=== PATIENT | male | born 1950 ===

== ENCOUNTER 2021-03-24 14:59 | Observation (INO) ==
[2021-03-24] MEDS ORDERED: Lactated Ringers 1000 ml BAG 1,000 ML IV ONE (15:34)
[2021-03-24] MEDS ORDERED: Metoprolol Tartrate 5 mg VIAL 5 ml VIAL (1 mg/ml) IV ONE (15:51)
[2021-03-24 15:54] LABS: ABS Basophils 0.1 10^3/ul (0-0.2); ABS Eosinophils 0.3 10^3/ul (0-0.6); ABS Monocytes 0.6 10^3/ul (0-0.8); ABS Neutrophils 6.3 10^3/ul (1.5-7.7); Eosinophil % 3.4 %; Hematocrit 40 % (42-52); Hemoglobin 13.8 g/dL (14.0-18.0); Lymphocyte % 21.4 %; Mean Corpuscular HGB Conc 35 g/dL (31-36); Mean Corpuscular Hemoglobin 31 pg (27-31); Mean Corpuscular Volume 89 fL (80-94); Mean Platelet Volume 7.3 fL (7.4-10.4); Platelet Count 305 10^3/uL (150-450); Red Blood Count 4.49 10^6 /uL (4.18-5.48); Red Cell Distribution Width 13 % (10-15); White Blood Count 9.3 10^3/uL (3.5-10.8)
[2021-03-24 16:28] LABS: Potassium 3.9 mmol/L (3.5-5.0)
[2021-03-24 16:29] LABS: Albumin 3.7 g/dL (3.2-5.2); Albumin/Globulin Ratio 1.2 (1-3); Calcium 9.1 mg/dL (8.6-10.3); EGFR African American 134.1 (>60); EGFR Non-African American 110.9 (>60); Globulin 3.2 g/dL (2-4); Magnesium 1.9 mg/dL (1.9-2.7); Total Bilirubin 0.5 mg/dL (0.2-1.0); Total Protein 6.9 g/dL (6.4-8.9)
[2021-03-24 16:46] LABS: TSH Ultra Thyroid Stim Horm 0.73 mcIU/mL (0.34-5.60)
[2021-03-24 17:35] LABS: Urine Benzodiazepine Screen None Detected (None Detect); Urine Cannabinoids Screen None Detected (None Detect); Urine Opiates Screen None Detected (None Detect)
[2021-03-24] MEDS ORDERED: Iohexol 350 (CONTRAST) 500 ML MDV IV ONE (21:12)
[2021-03-24 23:57] LABS: Activated Partial Thrombo Time 36.8 seconds (26.0-38.0)
[2021-03-25 00:36] LABS: Troponin I 0.01 ng/mL (<0.03)
[2021-03-25] MEDS ORDERED: Enoxaparin 40 MG/0.4 ML SYR SUBCUT SCH (01:00)
[2021-03-25] MEDS ORDERED: Aspirin EC 81 mg TAB.EC (enteric coated) PO SCH (01:00)
[2021-03-25 07:39] LABS: HDL Cholesterol 43.2 mg/dL
[2021-03-25 16:57] VITALS: BP 116/61
== END 2021-03-25 18:20 ==
LOC: ED 14:59 → MEDTELE 14:59
PROVIDERS: ADMIT Internal Medicine; ATTEND Internal Medicine